=== PATIENT | female | born 1980 | race Caucasian/White ===

== ENCOUNTER → 2019-04-21 | Outpatient (CLI) | payer OTHER | END | disposition home or self-care (01) | LOC: RADMRIMAIN 11:07 | PROVIDERS: ATTEND Psychiatry & Neurology Neurology | DX: Z53.9 Procedure and treatment not carried out, unspecified reason (principal) ==

== ENCOUNTER 2024-11-30 16:45 | Emergency (ER) | payer OTHER ==
[2024-11-30 16:58] VITALS: RESP 18; TEMP 98.6
[2024-11-30] MEDS: HYDROmorphone 1 MG/ML 1 ML SYRINGE IM STA ×2 (17:25→19:18)
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
[2024-11-30] MEDS: HYDROcodone/APAP 10-325MG 1 EACH TAB PO ONE (19:18)
[2024-11-30 19:27] VITALS: BP 129/80; PULSE 90
== END 2024-11-30 19:27 | disposition home or self-care (01) ==
LOC: EC 16:45
DX: M25.561 Pain in right knee (principal); S46.911A Strain of unspecified muscle, fascia and tendon at shoulder and upper arm level, right arm, initial encounter; Z88.1 Allergy status to other antibiotic agents; Z88.2 Allergy status to sulfonamides; Z88.5 Allergy status to narcotic agent; Z88.6 Allergy status to analgesic agent; V89.2XXA Person injured in unspecified motor-vehicle accident, traffic, initial encounter; Y92.410 Unspecified street and highway as the place of occurrence of the external cause
CPT/HCPCS: 73030; 73562; 71046; 72125; 70450; 99285; 96372; J1171